=== PATIENT | female | born 1975 | race Caucasian/White ===

== ENCOUNTER 2018-05-24 10:43 | Inpatient (IN) | payer OTHER ==
[2018-05-24] MEDS ORDERED: ONDANSETRON DISINTEGRATING 4 MG TAB PO ONE (11:11)
--- NOTE | 2018-05-24 11:17 | EDPHY ---
H & P Stated Complaint: slipped /24 hit bk of head, lac, h/a, nausea Source: Patient Exam Limitations: No limitations - Personal History LMP (Females 10-55): 22-28 Days Ago Current Tetanus/Diphtheria Vaccine: Unsure Current Tetanus Diphtheria and Acellular Pertussis (TDAP): Unsure - Medical/Surgical History Hx Asthma: No Hx Chronic Respiratory Disease: No Hx Diabetes: No Hx Cardiac Disease: No Hx Renal Disease: No Hx Cirrhosis: No Hx Alcoholism: No Hx HIV/AIDS: No Hx Splenectomy or Spleen Trauma: No Other PMH: htn - Social History Smoking Status: Never smoked Time Seen by Provider: 05/24/18 11:11 HPI/ROS: HPI: This is a 42-year-old female who presents with Chief Complaint: slipped 24 hit bk of head, lac, h/a, nausea Location: Back of head Quality: Injury Duration: 4 days ago Signs and Symptoms: no fever, + nausea, + vomiting, no photophobia, no noise sensitivity, no neck stiffness, no ear pain, no tinnitus, no nasal congestion, no sinus pressure, no weakness, no radiation, no aura Timing: Acute Severity: Moderate Context: Patient reports on [place] she was walking out to the mailbox and slipped on rocks falling backwards hitting the back of her head on the rocks. She reports that she went inside woke up in the middle night with pounding headache. She believes that she had loss of consciousness but it is unknown of how long. She also complains of nausea and several episodes of vomiting. She went back to and found her phone next to the rocks with blood. No prior history of concussions. LMP 2-3 weeks ago. Her friend placed Hydrogel dressing in the laceration. Patient reports that since that time she has had a headache that is nonradiating in nature, constant, throbbing and daily. Reports she wakes up with of headache. Does not take any blood thinners. She also has nausea and vomiting each day. Tetanus is current. Patient reports that she does not remember the events surrounding the injury and has been trying to"pieces together over the last few days." Modifying Factors: Local wound care Comment: ROS: A comprehensive 10 system review of systems is otherwise negative aside from elements mentioned in the history of present illness. MEDICAL/SURGICAL/SOCIAL HISTORY: Medical history: Hypertension. Surgical history: Denies Social history: Never smoked. Denies drug and alcohol use. Family history noncontributory. CONSTITUTIONAL: Slightly anxious middle-aged white female, friend at bedside, awake and alert, no obvious distress HEENT: Scabbed over laceration at the occipital lobe and normocephalic. NECK: supple, mild midline tenderness, flexion 45 degrees, extension 45 degrees , right and left lateral flexion 45 degrees. No meningismus. Cardiovascular: Normal S1/S2, regular rate, regular rhythm, without murmur rub or gallop. PULMONARY/CHEST: Symmetrical and nontender. no crepitus. Clear to auscultation bilaterally. Good air movement. No accessory muscle usage. ABDOMEN: Soft, nondistended, nontender, no ecchymosis. EXTREMITIES: 2/2 pulses, strength 5/5, DIP/PIP/MCP flexion/extension intact with good light touch sensation. no deformities, no clubbing, no cyanosis or edema. NEUROLOGICAL: no focal neuro deficits. GCS 15. Light touch sensation intact. Word-finding difficulties. Speech normal. SKIN: Warm and dry, no erythema. no rash. Good capillary refill. (Iza Snow) Constitutional: Initial Vital Signs Temperature (C) 36.7 C 05/24/18 10:48 Heart Rate 81 05/24/18 10:48 Respiratory Rate 16 05/24/18 10:48 Blood Pressure 146/105 H 05/24/18 10:48 O2 Sat (%) 97 05/24/18 10:48 O2 Delivery Mode Room Air Allergies/Adverse Reactions: No Known Allergies Allergy (Unverified 05/24/18 10:47) Home Medications: Medication Instructions Recorded Herbals/Supplements -Info Only 1 ea PO DAILY 05/24/18 Metoprolol Succinate Xr [Toprol Xl 25 mg PO DAILY 05/24/18 25 mg (*)] Medical Decision Making ED Course/Re-evaluation: Tetanus booster ordered Due to continue nausea and vomiting 4 days after head injury, head CT scan ordered Due to midline cervical tenderness, cervical CT scan ordered Patient given p.o. Zofran and Percocet Patient given referral to the concussion Clinic and prescription for Zofran 1150: Called by Radiology, Dr. Richey, CT cervical scan shows disc bulges but no acute fracture. Head CT scan shows subarachnoid blood that surrounds the basilar artery and unable to rule aneurysm. Dr. Richey recommends CT angio head to further evaluate. I-STAT ordered. 1229: Creatinine 0.8. H&H stable. 1245: Called by Radiology who advised that CTA head shows posttraumatic subarachnoid hemorrhage on the right with no cerebral edema, no aneurysm. ED decision to consult Neurosurgery. Spoke with Dr. Lyons who advised patient does not need to be admitted or have repeat head CT imaging as she is 4 days post trauma 1255: Called by Dr. Richey who advised that there is a 3 mm aneurysm at the distal ICA on the right near the pituitary sella. Consult Neurosurgery Dr. Lyons again regarding update that there is a brain aneurysm. She reports admit to the step-down unit and she will further evaluate. 1300: Patient continues to complain of a pounding headache and given IV morphine 4 mg No signs of neurovascular compromise/tenting of skin/compartment syndrome/ extremities and joints examined above and below area of concern and are neurovascularly intact. This patient was seen under the supervision of my secondary supervising physician. I evaluated care for this patient with my attending. Discussed this patient with Dr. Casas who did see the patient. (Iza Snow) I have evaluated and participated in the management of this patient. My co- signature indicates that I have reviewed this chart and that I agree with the findings and the plan of care as documented. My personal history and physical findings include: This is a 42-year-old female who suffered a fall 4 days ago. She struck the back of her head. She has little memory of this event and has had persistent headache, nausea and vomiting, and some mild word-finding difficulty since this occurred. She has a history of hypertension. Physical exam: She is awake and alert at the time of my examination. Her initial blood pressure was 146/105. Other vital signs normal. She has a scabbed area on the occiput. There is some mild midline lower cervical tenderness. Heart is regular lungs are clear. Abdomen is soft and nontender. MIRELLA. Tongue midline. Facial expressions symmetric. She is moving all 4 extremities spontaneously and equally. Sensation is intact to light touch over arms and legs. Initial CT scan shows subarachnoid hemorrhage. CT angiogram reveals aneurysm, right ICA. It is unclear whether her subarachnoid hemorrhages secondary to aneurysmal bleed or trauma. She is being admitted to the neurosurgical service, step-down unit. She will undergo blood pressure control, frequent neurologic checks, and an angiogram. There was no change in her exam or condition during her stay in the ED. (Lindsey Casas) Differential Diagnosis: Head injury including but not limited to concussion, skull fracture, intraparenchymal contusion, subarachnoid, subdural and epidural hematoma. (Iza Snow) Critical Care Time: I spent a total of 36 minutes of critical care time in obtaining history, performing a physical exam, bedside monitoring of interventions, collecting and interpreting tests and discussion with consultants but not including time spent performing procedures. (Iza Snow) - Data Points Medications Given: Acetaminophen (Tylenol) 1,000 mg PO Q8 DUSTIN Stop: 11/20/18 21:59 Last Admin: 05/25/18 02:55 Dose: 1,000 mg Morphine Sulfate (Morphine) 2 - 4 mg IVP Q2H PRN PRN Reason: Pain, Severe Unable to Take PO Stop: 06/03/18 19:18 Last Admin: 05/25/18 02:32 Dose: 4 mg Nimodipine (Nimotop) 60 mg PO Q4HRS DUSTIN Stop: 11/20/18 17:59 Last Admin: 05/25/18 06:58 Dose: 60 mg Ondansetron HCl (Zofran Odt) 4 mg PO Q4HRS PRN PRN Reason: Nausea/Vomiting, Use 1st Stop: 11/20/18 15:21 Last Admin: 05/24/18 17:37 Dose: 4 mg Oxycodone HCl (Oxycodone Ir) 10 mg PO Q4 PRN PRN Reason: Pain, Severe Able to Take PO Stop: 06/03/18 17:37 Last Admin: 05/25/18 02:56 Dose: 10 mg Promethazine HCl (Phenergan) 12.5 mg IVP Q6H PRN PRN Reason: Nausea/Vomiting, Can't Take PO Stop: 11/20/18 19:18 Last Admin: 05/25/18 02:45 Dose: 12.5 mg Scopolamine HBr (Scopolamine Patch) 1 patch TD Q72H PRN PRN Reason: Nausea/Vomiting, Use 2nd Stop: 11/20/18 15:29 Last Admin: 05/24/18 17:53 Dose: 1 patch Senna/Docusate Sodium (Senokot-S) 1 tab PO BID DSUTIN Stop: 11/20/18 20:59 Last Admin: 05/24/18 19:28 Dose: Not Given Discontinued Medications Hydrocodone Bitart/Acetaminophen ([place] 5/325) 1 tab PO Q4H PRN PRN Reason: MODERATE TO SEVERE PAIN Stop: 06/03/18 16:20 Last Admin: 05/24/18 16:30 Dose: 1 tab Diphtheria/Tetanus/Acell Pertussis (Boostrix) 0.5 ml IM .ONCE ONE Stop: 05/24/18 11:19 Last Admin: 05/24/18 11:59 Dose: 0.5 ml Morphine Sulfate (Morphine) 4 mg IVP EDNOW ONE Stop: 05/24/18 13:05 Last Admin: 05/24/18 13:14 Dose: 4 mg Morphine Sulfate (Morphine) 2 mg IVP ONCE ONE Stop: 05/24/18 17:46 Last Admin: 05/24/18 17:53 Dose: 2 mg Ondansetron HCl (Zofran Odt) 4 mg PO EDNOW ONE Stop: 05/24/18 11:12 Last Admin: 05/24/18 11:14 Dose: 4 mg Oxycodone/Acetaminophen (Percocet 5/325) 1 tab PO EDNOW ONE Stop: 05/24/18 11:35 Last Admin: 05/24/18 11:59 Dose: 1 tab Point of Care Test Results: Chemistry 05/24/18 12:14 POC Sodium 143 mEq/L mEq/L (135-145) POC Potassium 3.7 mEq/L mEq/L (3.3-5.0) POC Chloride 109 mEq/L mEq/L (97-110) POC BUN 6 mg/dL L mg/dL (7-23) POC Creatinine 0.8 mg/dL mg/dL (0.6-1.0) POC Glucose 90 mg/dL mg/dL (70-100) ISTAT H&H 05/24/18 12:14 POC Hgb 13.3 gm/dL gm/dL (12.6-16.3) POC Hct 39 % % (38-47) Departure - Departure Disposition: [facility] Acute Clinical Impression: Subarachnoid hemorrhage following injury with brief loss of consciousness but without open intracranial wound, Brain aneurysm, Cervical disc disease Closed head injury with concussion Qualifiers: Encounter type: initial encounter Loss of consciousness presence/duration: with LOC of 30 min or less Qualified Code(s): S06.0X1A - Concussion with loss of consciousness of 30 minutes or less, initial encounter Condition: Fair
[2018-05-24] MEDS ORDERED: TDAP ADULT 0.5 ML INJ (BOOSTRIX) IM ONE (11:18)
[2018-05-24] MEDS ORDERED: OXYCODONE/APAP 5/325 TAB PO ONE (11:34)
[2018-05-24] MEDS ORDERED: IOPAMIDOL (ISOVUE 370) 100 ML BTL IV ONE (12:22)
--- NOTE | 2018-05-24 15:18 | GHP ---
DATE OF ADMISSION: 05/24/2018 CHIEF COMPLAINT: Headache. HISTORY OF PRESENT ILLNESS: This is a 42-year-old female with a past medical history of hypertension and who is relatively noncompliant with her medications. She states that on she remem bers going out to get packages and that is the last thing she remembers for a couple of hours, where she awoke in her home with blood coming from a laceration on the back of her head, and vomiting. She said that she had head and neck pain for and then this got significantly better, some mild head and neck pain, and then today she had several episodes of sort of seq-os-bph-blue severe he ad pain and in a nondescript fashion throughout her head and her neck, and some nausea and vomiting, and so she came to the emergency department. She has some mild confusion but she attributes this to having recently gotten morphine. She says that she has felt slower than normal and had maybe some mi ld word-finding difficulties but no other significant complaints beyond headache and nausea. No numb ness, tingling or weakness. PAST MEDICAL HISTORY: Includes hypertension. PAST SURGICAL HISTORY: Includes section. SOCIAL HISTORY: She does not smoke. She does not drink alcohol. She is . She does not use illicit drugs. FAMILY HISTORY: She has no family history of aneurysm or aneurysmal subarachnoid hemorrhage or sudde n . MEDICATIONS: Home medications include metoprolol, which she does not take regularly, and some type o f an herbal supplement. ALLERGIES: She has no known drug allergies. REVIEW OF SYSTEMS: Complete 10-point review of systems was performed by me and was negative except a s stated above. PHYSICAL EXAM: VITAL SIGNS: Blood pressure is 126/102, heart rate 82, respiratory rate 16, saturati ng 98% on room air. Temp is 36.7 degrees Celsius. Hemoglobin 13.3, hematocrit 39. Sodium 143, potassium 3.7, chloride 109, BUN 6, creatinine 0.8, gluc ose 90. CT of the head and cervical spine reveals a subarachnoid hemorrhage on the right within the sylvian fissure and along the right side of the brainstem and into the interpeduncular cistern. Fariha ins of basilar artery are partially obscured secondary to blood products. Possibility of aneurysm co uld not be excluded, and CT angiogram was performed and will be dictated in a moment. Loss of sulci over the right temporal lobe and posterior frontal to anterior parietal lobes could be related to blo od products in the sulci versus right-sided edema. Qouo-jn-ajnrndjd disk bulges, C4-5 and C5-6, ty g with congenitally narrow canal contributes to skvo-dt-skcuuisv spinal stenosis. No fracture or mal alignment. CT angiogram of the head reveals a tiny aneurysm associated with distal right ICA, approx imately 4 mm anterior to the posterior communicating origin, that measures 2 x 2.5 x 3 mm. No additi onal aneurysm seen on the right. There is a tiny 1 mm focal bulging of the distal left ICA involving the early part of the carotid siphon just above the carotid canal, no additional aneurysm seen on th e left. There is normal branching of the anterior middle cerebral arteries. The anterior communicat ing arteries are normal in appearance. No cut-off of flow. Normal posterior communicating artery se en on the right with some meniscal posterior communicating artery on the left. The vertebrobasilar s ystem demonstrates normal contrast enhancement without evidence of stenosis or aneurysm. There is do minant left vert when compared to the right. There is normal branching to the posterior inferior cer ebellar artery as well as the superior cerebellar artery and posterior cerebellar artery branches. N o evidence of subdural collection, vascular malformation or evidence of cerebral infarction. She is alert and oriented x3. Pupils are equal, round, reactive to light and accommodation. Externa l ocular muscles are intact. There is no facial asymmetry or tongue deviation. Sensation is intact in V1, V2, V3 distributions of the 5th cranial nerve bilaterally. Strength is 5/5 to bilateral delto ids, biceps, triceps, wrist flexors, extensors, hand intrinsics, iliopsoas, quadriceps, hamstrings, d orsiflexors, plantar flexors, EHLs. DTRs are +2/4 biceps, brachioradialis, patellar and Achilles. T here is no Iggy's. There is no clonus and there is no drift. IMPRESSION AND PLAN: This is a 42-year-old female with subarachnoid hemorrhage in the prepontine cis tern and right sylvian fissure. She did have a fall on [place]. This may be traumatic in natu re as there appears to be no obvious connection to the small distal ICA aneurysm that is noted, altho ugh this is also present in the right side. Given her story is not clear for the etiology of her fal l, the fact that she is having severe headache and nausea and there is an aneurysm present, I have di scussed this case with my vascular partner, Dr. Karl Mueller, who has reviewed the films. We will ad will her to the step-down, will start nimodipine 60 mg p.o. q.4 hours, q.2 hour neuro checks, keep her blood pressure well controlled, control her pain, get an MRA to further visualize the vessels, and Gerhard Mueller will work on scheduling her for an angiogram on Sunday. This was discussed with the patient and a family member at bedside. She is agreeable, is to call with any changes in neurologic status. /[id number]/MODL
[2018-05-24] MEDS ORDERED: ACETAMINOPHEN 650 MG/20.3 ML UDCUP PO PRN (15:22)
[2018-05-24] MEDS ORDERED: oxyCODONE IR 5 MG TAB PO PRN (15:22)
[2018-05-24] MEDS ORDERED: ONDANSETRON DISINTEGRATING 4 MG TAB PO PRN (15:22)
[2018-05-24] MEDS ORDERED: SCOPOLAMINE HYDROBROMIDE 1 MG/3 DAYS PATCH TD PRN (15:22)
[2018-05-24] MEDS ORDERED: LABETALOL HCL 20 MG/4 ML INJ IVP PRN (15:22)
--- NOTE | 2018-05-24 15:56 | PDMN ---
Medical Necessity Medical necessity: Pt meets inpt criteria per MD order and MCG M-79, Subarachnoid Hemorrhage, Nonsurgical Treatment, 4 days. 42 y/o admitted w/ subarachnoid hemorrhage in the prepontine cistern and R sylvian fissure, possibly from trauma of fall several days ago, pt w/severe ERICKSON and nausea and aneurysm present. SDU care, q 2 hr neuro checks, BP control, pain control, MRA pending, angiogram likely Sunday, SDU care/monitoring.
[2018-05-24] MEDS ORDERED: METOPROLOL TARTRATE 5 MG/5 ML INJ ONE (15:57)
[2018-05-24] MEDS ORDERED: HYDROCODONE/APAP 5/325 TAB PO PRN (16:21)
[2018-05-24] MEDS: niMODipine 30 MG CAP PO SCH ×2 (18:05→22:23)
[2018-05-24] MEDS: oxyCODONE IR 5 MG TAB PO PRN (18:27)
[2018-05-24] MEDS: PROMETHAZINE HCL 25 MG/ML INJ IVP PRN (19:22)
[2018-05-24] MEDS: SENNOSIDES/DOCUSATE SODIUM TAB PO SCH (19:28)
[2018-05-24] MEDS: ACETAMINOPHEN 500 MG TAB PO SCH (23:07)
[2018-05-25] MEDS: niMODipine 30 MG CAP PO SCH ×6 (02:31→22:51)
[2018-05-25] MEDS: PROMETHAZINE HCL 25 MG/ML INJ IVP PRN (02:45)
[2018-05-25] MEDS: ACETAMINOPHEN 500 MG TAB PO SCH ×3 (02:55→22:53)
[2018-05-25] MEDS: oxyCODONE IR 5 MG TAB PO PRN ×5 (02:56→22:52)
--- NOTE | 2018-05-25 07:02 | NEUSURGPN ---
Assessment/Plan: 42F, HTN, with fall 4 days ago and some suspected tSAH int he prepontine cistern and right sylvian fissure, also with imaging findings of aneurysm along the distal ICA on the right. -SBP<150 -q2h neuro checks -nimotop 60mg q4h -pain control -minimize narcotics -nausea control -plan for angiogram and treatment on Sunday at noon with Dr. Mueller dw Dr. Mueller Subjective: continues to have headache, no new issues with nausea, rates pain 10/04 Objective: VSS AAOx3 NAD cnii-xii grossly intact EOMI, PEARLA no facial droop, no pronator drift MAEx4, 09/29= SILT - Physician Discussed Patient with : Ervin Neurosurgery Physical Exam - Vitals, I&O, Labs I and O 05/24/18 05/25/18 05/26/18 05:59 05:59 05:59 Intake Total 950 Output Total 500 Balance 450 Weight 70.3 kg Intake: Oral (ml) 950 Output: Emesis (ml) 500 Other: Intake Quantity Yes Sufficient Number of Voids Toilet 2 Vital Signs Temp Pulse Resp BP Pulse Ox 36.6 C 69 15 109/72 91 L 05/24/18 14:45 05/25/18 04:00 05/25/18 04:00 05/25/18 04:00 05/25/18 04:00 ICD10 Worksheet Patient Problems: Problems Problem Status Onset Brain aneurysm Acute Cervical disc disease Acute Closed head injury with concussion Acute Subarachnoid hemorrhage following injury with brief loss of consciousness but without open intracranial wound Acute
[2018-05-25] MEDS: SENNOSIDES/DOCUSATE SODIUM TAB PO SCH ×2 (09:37→22:54)
[2018-05-25] MEDS: METOPROLOL SUCCINATE XR 25 MG TAB PO SCH (09:37)
[2018-05-25] MEDS: ONDANSETRON 4 MG/2 ML VIAL IVP PRN ×2 (09:47→17:00)
[2018-05-26] MEDS: niMODipine 30 MG CAP PO SCH ×6 (01:52→21:15)
[2018-05-26] MEDS: oxyCODONE IR 5 MG TAB PO PRN ×5 (04:54→21:15)
[2018-05-26] MEDS: ACETAMINOPHEN 500 MG TAB PO SCH ×3 (04:55→21:15)
[2018-05-26] MEDS: METOPROLOL SUCCINATE XR 25 MG TAB PO SCH (08:46)
[2018-05-26] MEDS: SENNOSIDES/DOCUSATE SODIUM TAB PO SCH ×2 (09:00→21:15)
--- NOTE | 2018-05-26 09:46 | ASMTCMCOM ---
CM Note CM Note Notes: 42yo female admitted after a Fall: Headache, Nausea, CHI, SAH, Aneurysm. She has a Hx of HTN not well managed. Patient to have an angiogram on Sunday. Patient lives alone in [place]. Therapies to MARY wick to follow. Date Signed: 05/26/2018 09:45 AM Electronically Signed By:Alisson Alexandre LCSW
--- NOTE | 2018-05-26 10:30 | NEUSURGPN ---
Assessment/Plan: 42F, HTN, with fall 4 days ago and some suspected tSAH int he prepontine cistern and right sylvian fissure, also with imaging findings of aneurysm along the distal ICA on the right. -encourage mobilization. -SBP<150 -q2h neuro checks -nimotop 60mg q4h -pain control -minimize narcotics -nausea control -plan for angiogram and treatment on Sunday at noon with Dr. Mueller dw Dr. Mueller Subjective: doing well, still with some headaches, controlled with meds. Objective: VSS AAOx3 NAD cnii-xii grossly intact EOMI, PEARLA speech clear and fluent no facial droop, no pronator drift MAEx4, 5/= SILT - Physician Discussed Patient with Dr.: Mueller Neurosurgery Physical Exam - Vitals, I&O, Labs I and O 05/25/18 05/26/18 05/27/18 05:59 05:59 05:59 Intake Total 950 800 Output Total 500 Balance 450 800 Weight 70.3 kg Intake: Oral (ml) 950 800 Output: Emesis (ml) 500 Other: Intake Quantity Yes Sufficient Number of Voids Toilet 2 1 Vital Signs Temp Pulse Resp BP Pulse Ox 36.5 C 83 16 127/86 H 97 05/26/18 08:32 05/26/18 10:08 05/26/18 08:32 05/26/18 10:08 05/26/18 08:32 ICD10 Worksheet Patient Problems: Problems Problem Status Onset Brain aneurysm Acute Cervical disc disease Acute Closed head injury with concussion Acute Subarachnoid hemorrhage following injury with brief loss of consciousness but without open intracranial wound Acute
[2018-05-26] MEDS: PROMETHAZINE HCL 25 MG/ML INJ IVP PRN (21:15)
[2018-05-27] MEDS: oxyCODONE IR 5 MG TAB PO PRN ×5 (02:11→21:15)
[2018-05-27] MEDS: niMODipine 30 MG CAP PO SCH ×5 (02:11→19:33)
[2018-05-27] MEDS: ACETAMINOPHEN 500 MG TAB PO SCH ×3 (05:43→21:15)
--- NOTE | 2018-05-27 07:38 | NEUSURGPN ---
Assessment/Plan: Assessment: 42 yo female with HTN and fall prior to admission with some suspected tSAH in the prepontine cistern and right sylvian fissure, also with imaging findings of aneurysm along the distal ICA on the right Plan: -encourage mobilization -NPO -SBP<150 -q2h neuro checks -nimotop 60mg q4h -pain control -minimize narcotics -nausea control -plan for angiogram and treatment today with Dr. Mueller -consents reviewed in detail with patient and signed -risks, need and benefits of surgery discussed -pt understands and agrees, she wants to proceed Subjective: Awake and alert. NAD. No new events overnight Objective: AFVSS. AAOx3 NAD cnii-xii grossly intact EOMI, PEARLA speech clear and fluent no facial droop, no pronator drift CHIU x 4, 5/5= SILT Neuro Check Frequency: per routine Urinary Catheter in Place: No - Physician Discussed Patient with Dr.: Mueller Patient Seen by : Ervin Neurosurgery Physical Exam - Vitals, I&O, Labs I and O 05/26/18 05/27/18 05/28/18 05:59 05:59 05:59 Intake Total 800 2500 Balance 800 2500 Intake: Oral (ml) 800 2500 Other: Number of Voids Toilet 1 1 Vital Signs Temp Pulse Resp BP Pulse Ox 36.9 C 65 20 93/57 L 94 05/27/18 04:00 05/27/18 04:00 05/27/18 04:00 05/27/18 04:00 05/27/18 04:00 ICD10 Worksheet Patient Problems: Problems Problem Status Onset Brain aneurysm Acute Cervical disc disease Acute Closed head injury with concussion Acute Subarachnoid hemorrhage following injury with brief loss of consciousness but without open intracranial wound Acute
[2018-05-27] MEDS ORDERED: ceFAZolin 2 GM in D5W 100 ML IV ONE (10:00)
[2018-05-27] MEDS: SENNOSIDES/DOCUSATE SODIUM TAB PO SCH ×2 (10:22→21:14)
[2018-05-27] MEDS: METOPROLOL SUCCINATE XR 25 MG TAB PO SCH (10:23)
[2018-05-27] MEDS ORDERED: MIDAZOLAM 2 MG/2 ML VIAL IVP ONE (11:33)
--- NOTE | 2018-05-27 11:37 | PDANEPAE ---
ANE History of Present Illness Intracranial angiogram possible coiling ANE Past Medical History - Cardiovascular History Hx Hypertension: Yes Hx Arrhythmias: No Hx Chest Pain: No Hx Coronary Artery / Peripheral Vascular Disease: No Hx CHF / Valvular Disease: No Hx Palpitations: No - Pulmonary History Hx COPD: No Hx Asthma/Reactive Airway Disease: No Hx Recent Upper Respiratory Infection: No Hx Oxygen in Use at Home: No Hx Sleep Apnea: No - Endocrine History Hx Diabetes: No Hypothyroid: No Hyperthyroid: No Obesity: no - Chronic Pain History Chronic Pain: No ANE Review of Systems Review of systems is: negative Review of Systems: - Exercise capacity METS (RN): 4 METS ANE Patient History - Allergies Allergies/Adverse Reactions: No Known Allergies Allergy (Unverified 05/24/18 10:47) - Home Medications Home medications: home medication list seen and reviewed Home Medications: Herbals/Supplements -Info Only 1 ea PO DAILY 05/24/18 [Last Taken 3 Days Ago ~] Metoprolol Succinate Xr [Toprol Xl 25 mg (*)] 25 mg PO DAILY 05/24/18 [Last Taken 7 Days Ago ~05/17/18] - NPO status NPO Status: no food or drink >8 hours - Anes Hx Anes Hx: no prior problems - Smoking Hx Smoking Status: Never smoked - Alcohol Use Alcohol Use: None - Family Anes Hx Family Anes Hx: none ANE Labs/Vital Signs - Labs Result Diagrams: 05/27/18 08:23 - Vital Signs Blood Pressure: 99/62 Heart Rate: 68 Respiratory Rate: 14 O2 Sat (%): 93 Height: 170.18 cm Weight: 70.3 kg ANE Physical Exam - Airway Neck exam: FROM Mallampati Score: Class 1 - Pulmonary Pulmonary: no respiratory distress, no rales or rhonchi - Cardiovascular Cardiovascular: regular rate and rhythym, no murmur, rub, or gallop - ASA Status ASA Status: II ANE Anesthesia Plan Anesthesia Plan: general endotracheal anesthesia Lines/Monitors: arterial line (Possible a-line)
[2018-05-27] MEDS ORDERED: IOPAMIDOL (ISOVUE-300) 100 ML BTL ONE ×2 (11:47→15:42)
[2018-05-27] MEDS ORDERED: PROPOFOL/EMULSION 500 MG/50 ML BOTTLE IV ONE (11:53)
[2018-05-27] MEDS ORDERED: MEPERIDINE 25 MG/ML SYR IVP PRN (11:53)
[2018-05-27] MEDS ORDERED: NALOXONE HCL 0.4 MG/ML INJ IVP PRN ×2 (11:53→16:19)
[2018-05-27] MEDS ORDERED: FLUMAZENIL 0.5 MG/5 ML MDV IVP PRN (11:53)
[2018-05-27] MEDS ORDERED: MIDAZOLAM 2 MG/2 ML VIAL IVP PRN (11:53)
[2018-05-27] MEDS ORDERED: PROPOFOL 200 MG/20 ML VIAL ONE ×2 (11:53→14:12)
[2018-05-27] MEDS ORDERED: ALTEPLASE 2 MG VIAL IVP PRN (11:53)
[2018-05-27] MEDS ORDERED: HEPARIN 10,000 UNIT/10 ML MDV (1,000 UNIT/ML) IVP PRN (11:53)
[2018-05-27] MEDS ORDERED: ROCURONIUM 50 MG/5 ML VIAL ONE ×2 (11:53→13:17)
[2018-05-27] MEDS ORDERED: PROTAMINE SULFATE 50 MG/5 ML VIAL IVP PRN (11:53)
[2018-05-27] MEDS ORDERED: fentaNYL 100 MCG/2 ML INJ IVP PRN ×2 (11:53→16:19)
[2018-05-27] MEDS ORDERED: fentaNYL 100 MCG/2 ML INJ ONE ×2 (11:53)
[2018-05-27] MEDS ORDERED: GLYCOPYRROLATE 0.2 MG/1 ML VIAL ONE (11:54)
[2018-05-27] MEDS ORDERED: DEXAMETHASONE 4 MG/ML VIAL ONE (11:54)
[2018-05-27] MEDS ORDERED: PHENYLEPHRINE HCL 100 MCG/ML SYR ONE (11:54)
[2018-05-27] MEDS ORDERED: LIDOCAINE 2% 5 ML SDV ONE (11:54)
[2018-05-27] MEDS ORDERED: NS 1,000 ML IV SCH (12:00)
[2018-05-27] MEDS ORDERED: ONDANSETRON 4 MG/2 ML VIAL ONE (13:24)
[2018-05-27] MEDS ORDERED: LIDOCAINE HCL 160 MG/4 ML LTA KIT TP ONE (13:24)
[2018-05-27] MEDS ORDERED: VERAPAMIL 5 MG/2 ML VIAL ONE (14:05)
[2018-05-27] MEDS ORDERED: VERAPAMIL IVP PRN (14:20)
[2018-05-27] MEDS ORDERED: SUGAMMADEX SODIUM 200 MG/2 ML VIAL IVP ONE (14:30)
--- NOTE | 2018-05-27 14:56 | POSTOPPROG ---
Post Op Note Date of Operation: 05/27/18 Surgeon: Karl Mueller [employer] Salesperson: none Anesthesiologist: Anastacio Anesthesia: GET(General Endotracheal) Pre-op Diagnosis: cerebral aneurysm Post-op Diagnosis: same Indication: same Procedure: coil embolization of cerebral aneurysm Findings: see dictation Inf/Abcess present in the surg proc area at time of surgery?: No EBL: Minimal
--- NOTE | 2018-05-27 14:57 | PDCONSULT ---
Office Nurse Practitioner Note: NEUROSURGERY resting well in PACU AAOx3, speech clear and fluent VF full, CNII-XII normal full strength and sensation, no drift groin c/d/i without hematoma POD#0 s/p coil embolization of right superior hypophyseal aneurysm - doing well - monitor in SDU overnight - likely could d/c tomorrow if doing well - continue SBP 90-140 - can d/c nimodipine at d/c Ervin
[2018-05-27] MEDS ORDERED: PATCH REMOVAL 1 EA PATCH TD SCH (15:26)
[2018-05-27] MEDS ORDERED: ONDANSETRON 4 MG/2 ML VIAL IVP PRN (16:19)
[2018-05-27] MEDS ORDERED: ACETAMINOPHEN 500 MG TAB PO PRN (16:19)
--- NOTE | 2018-05-27 16:54 | POSTANESTH ---
Post Anesthetic Evaluation Cardiovascular Status: Normal, Stable Respiratory Status: Normal, Stable Level of Consciousness/Mental Status: Can Participate in Eval Pain Control: Adequate, Prn Tx Ordered Nausea/Vomiting Control: Adequate, Prn Tx Ordered Complications Possibly Related to Anesthesia: None Noted
[2018-05-27] MEDS: PROMETHAZINE HCL 25 MG/ML INJ IVP PRN (21:16)
[2018-05-28] MEDS: niMODipine 30 MG CAP PO SCH ×4 (00:05→10:45)
[2018-05-28] MEDS: oxyCODONE IR 5 MG TAB PO PRN ×3 (03:34→12:43)
[2018-05-28] MEDS: ACETAMINOPHEN 500 MG TAB PO SCH (06:38)
[2018-05-28] MEDS: METOPROLOL SUCCINATE XR 25 MG TAB PO SCH (08:47)
[2018-05-28] MEDS: SENNOSIDES/DOCUSATE SODIUM TAB PO SCH (08:47)
--- NOTE | 2018-05-28 09:18 | NEUSURGPN ---
Assessment/Plan: 42F, HTN, with fall 4 days ago and some suspected tSAH int he prepontine cistern and right sylvian fissure, also with imaging findings of aneurysm along the distal ICA on the right. 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 Mueller Subjective: doing well. headache managed on oxy/tylenol, thinks its improve. feeling of pressure around her eyes is improving. Objective: NAD VSS AAOx3 EOMI, PEARLA Cnii-xii grossly intact no facial droop, no drift Speech clear and fluent MAEx4, 5/5= SILT Incision dressed, Dry intact. - Physician Discussed Patient with : [facility] Physical Exam - Vitals, I&O, Labs I and O 05/27/18 05/28/18 05/29/18 05:59 05:59 05:59 Intake Total 2500 1700 Output Total 20 Balance 2500 1680 Weight 70.3 kg Intake: Oral (ml) 2500 800 IV Intake (ml) 900 Output: Estimated Blood Loss (ml) 20 Other: Number of Voids Toilet 1 3 Vital Signs Temp Pulse Resp BP Pulse Ox 36.9 C 67 14 98/67 L 92 05/28/18 07:35 05/28/18 08:47 05/28/18 07:35 05/28/18 08:47 05/28/18 07:35 Laboratory Results 05/27/18 08:23 ICD10 Worksheet Patient Problems: Problems Problem Status Onset Brain aneurysm Acute Cervical disc disease Acute Closed head injury with concussion Acute Subarachnoid hemorrhage following injury with brief loss of consciousness but without open intracranial wound Acute
[2018-05-28 11:43] VITALS: BP 107/72
--- NOTE | 2018-05-28 13:10 | ASMTLACE ---
LACE Length of stay for Answers: 3 days current admission Acuity / Level of Answers: Yes Care: Did the patient have an inpatient admission? Comorbidities - select Answers: Other Notes: HTN all that apply # of Emergency department Answers: 1-2 visits in the last 6 months Score: 8 Date Signed: 05/28/2018 01:09 PM Electronically Signed By:Jacy Tate RN
--- NOTE | 2018-05-28 13:13 | ASDISCHSUM ---
Discharge Information Plan Status:Home with No Needs Medically Cleared to Leave: Discharge Date:05/28/2018 01:04 PM CM D/C Disposition: ADT D/C Disposition:Home, Routine, Self-Care Projected Discharge Date:05/28/2018 01:04 PM Transportation at D/C: Discharge Delay Reason: Follow-Up Date:05/28/2018 01:04 PM Discharge Slot: Final Diagnosis:Fall: Headache, Nausea, CHI, SAH, Aneurysm Placement Information Patient Contact Information Contact Name:CHIKI Relationship:Mother Address: City: [facility] Phone: [facility]/Zip Code:[place] Email: Financial Information Financial Class:Self-Pay Primary Plan Desc:SELF PAY Primary Plan Number: Secondary Plan Desc: Secondary Plan Number: Assessment Information [facility] CM Progress Note CM Note CM Note Notes: 42yo female admitted after a Fall: Headache, Nausea, CHI, SAH, Aneurysm. She has a Hx of HTN not well managed. Patient to have an angiogram on Sunday. Patient lives alone in [place]. Therapies to MARY wick to follow. Date Signed: 05/26/2018 09:45 AM Electronically Signed By:Alisson Alexandre LCSW LACE PARTHA Length of stay for Answers: 3 days current admission Acuity / Level of Answers: Yes Care: Did the patient have an inpatient admission? Comorbidities - select Answers: Other Notes: HTN all that apply # of Emergency department Answers: 1-2 visits in the last 6 months Score: 8 Date Signed: 05/28/2018 01:09 PM Electronically Signed By:Jacy Tate RN Case Management Discharge Plan Note Case Management Discharge Discharge Order Complete? Answers: Yes Patient to Obtain Answers: Independently Medications Transportation Arranged Answers: Family/Friends Discharge Comments Notes: Patient discharged home. No d/c needs identified. Date Signed: 05/28/2018 01:11 PM Electronically Signed By:Jacy Tate RN Intervention Information
== END 2018-05-28 13:04 | disposition home or self-care (01) | DRG 25 ==
LOC: F2N 14:36
PROVIDERS: ADMIT Neurological Surgery; ATTEND Neurological Surgery
PROC: B31F1ZZ Fluoroscopy of Left Vertebral Artery using Low Osmolar Contrast (ICD-10-PCS; principal; 2018-05-27 14:55)
PROC: 03LK3DZ Occlusion of Right Internal Carotid Artery with Intraluminal Device, Percutaneous Approach (ICD-10-PCS; principal; 2018-05-27 14:55)
PROC: B3181ZZ Fluoroscopy of Bilateral Internal Carotid Arteries using Low Osmolar Contrast (ICD-10-PCS; principal; 2018-05-27 14:55)
DX: I67.1 Cerebral aneurysm, nonruptured (principal); S06.6X1A Traumatic subarachnoid hemorrhage with loss of consciousness of 30 minutes or less, initial encounter; W01.198A Fall on same level from slipping, tripping and stumbling with subsequent striking against other object, initial encounter; I10 Essential (primary) hypertension; M48.02 Spinal stenosis, cervical region; Y92.007 Garden or yard of unspecified non-institutional (private) residence as the place of occurrence of the external cause; Y93.89 Activity, other specified; Z23 Encounter for immunization
CPT/HCPCS: 82435-PO; 82565-PO; 82947-PO; 84132-PO; 84295-PO; 84520-PO; 85014-PO; 92523-GN; 96374; C1769; C1887; J0690; J1100; J2250; J2270; J2370; J2405; J2550; J2704; J3010; Q9967

== ENCOUNTER 2018-06-04 11:58 | Emergency (ER) | payer OTHER ==
[2018-06-04] MEDS ORDERED: IPRATROPIUM/ALBUTEROL 3 ML DEYVIAL IH ONE (12:24)
--- NOTE | 2018-06-04 12:24 | EDPHY ---
H & P Stated Complaint: feels like can't breathe/hyp[erventilation/brain aneurysm surg 05/27 Time Seen by Provider: 06/04/18 12:24 - Personal History LMP (Females 10-55): IUD In Place Current Tetanus Diphtheria and Acellular Pertussis (TDAP): Yes - Medical/Surgical History Hx Asthma: No Hx Chronic Respiratory Disease: No Hx Diabetes: No Hx Cardiac Disease: No Hx Renal Disease: No Hx Cirrhosis: No Hx Alcoholism: No Hx HIV/AIDS: No Hx Splenectomy or Spleen Trauma: No Other PMH: htn surg for brain aneurysm - Social History Smoking Status: Never smoked Constitutional: Initial Vital Signs Temperature (C) 36.8 C 06/04/18 12:02 Heart Rate 68 06/04/18 12:02 Respiratory Rate 20 06/04/18 12:02 Blood Pressure 127/97 H 06/04/18 12:02 O2 Sat (%) 100 06/04/18 12:02 O2 Delivery Mode Room Air Allergies/Adverse Reactions: No Known Allergies Allergy (Verified 06/04/18 12:01) Home Medications: Medication Instructions Recorded Herbals/Supplements -Info Only 1 ea PO DAILY 05/24/18 Metoprolol Succinate Xr [Toprol Xl 25 mg PO DAILY 05/24/18 25 mg (*)] Acetaminophen [Tylenol ES 500 mg 1,000 mg PO Q8 tab 05/28/18 (*)] Sennosides/Docusate Sodium 1 tab PO BID tab 05/28/18 [Senokot-S] Percocet 5-325 mg Tablet 06/04/18 Medical Decision Making - Diagnostics Imaging Results: Imaging Impressions Chest/Thorax CTA 06/04/18 12:32 Impression: 1. No evidence of thrombopulmonary embolic disease. 2. Mild airways disease. Otherwise clear lungs. No pneumonia or edema. Findings discussed with Emergency Department physician, Dr. Maurizio Zimmer on June 04, 2018 at 1340 hours. Imaging: Discussed imaging studies w/ bilingual call center representative Radiologist ED Course/Re-evaluation: CHIEF COMPLAINT: Difficulty breathing HISTORY OF PRESENT ILLNESS: 42-year-old female who had a brain aneurysm coiled on 05/27/2018. She has been doing well postoperatively but today she noticed that she was having some shortness of breath. She describes a squeezing around her upper chest and neck. She describes some difficulty in swallowing. She states that she feels like she was a bit anxious. It was her 1st day back at work. She denies any chest pain or chest pressure. She denies any true shortness of breath now as these symptoms come and go a bit and last for a minute or 2. She call the neurosurgeon's office but did not hear back at so came here for further evaluation. She does not have any cardiopulmonary risk factors. She has no family risk factors for early cardiac disease. She does take metoprolol for borderline hypertension. REVIEW OF SYSTEMS: A comprehensive 10 system review of systems is otherwise negative aside from elements mentioned in the history of present illness and medical decision making. PHYSICAL EXAM: HR, BP, O2 Sat, RR. Temp noted General Appearance: Alert, well hydrated, appropriate, and non-toxic appearing. Head: Atraumatic without scalp tenderness or obvious injury Eyes: Pupils equal, round, reactive to light and accommodation, EOMI, no trauma , no injection. Ears: Clear bilaterally, no perforation, normal landmarks Nose: Atraumatic, no rhinorrhea, clear. Throat: There is no erythema or exudates, no lesions, normal tonsils, mucus membranes moist. Neck: Supple, 2+ carotid upstroke, nontender, no lymphadenopathy. Respiratory: No retractions, no distress, no wheezes, and no accessory muscle use. Lungs are clear to auscultation bilaterally. Cardiovascular: Regular rate and rhythm, no murmurs, rubs, or gallops. Bilateral carotid, radial, dorsalis pedis, and posterior tibial pulses intact. Good capillary refill all extremities. Gastrointestinal: Abdomen is soft, nontender, non-distended, no masses, no rebound, no guarding, no peritoneal signs. Musculoskeletal: Normal active ROM of all extremities, atraumatic. Neurological: Alert, appropriate, and interactive. The patient has normal DTRs and non-focal cranial nerves, motor, sensory, and cerebellar exam. Skin: No rashes, good turgor, no nodules on palpation. Past medical history: Brain aneurysm hypertension Past surgical history: coil of brain aneurysm Family history: Noncontributory Social history: Single, employed, does not abuse tobacco drugs or alcohol DIAGNOSTICS/PROCEDURES/CRITICAL CARE TIME: Study: CT angiography of the chest Indication: Postoperative with shortness of breath intermittently Results: CT scan of the chest was obtained. The results of the study are normal. The study was read by the radiologist, Dr. Hurst. I viewed the images myself on the PACS system. DIFFERENTIAL DIAGNOSIS: The differential diagnosis for the patient's shortness of breath included but was not limited to pneumonia, myocardial infarction, acute mountain sickness, high altitude pulmonary edema, congestive heart failure , and pulmonary embolus. MEDICAL DECISION MAKING: This patient is recently postop from brain surgery. She is not currently on any anticoagulants. She is not immobile. She was started her 1st at work when she felt a bit anxious and having intermittently trouble breathing. She feels better now. She is specifically concerned about a blood clot. She is not tachypneic or tachycardic. I-STAT, troponin, CT angiography pending. She has 100% O2 saturation on room air. I will not complete d-dimer test at this time as this may be elevated due to her recent surgery. As she is higher risk and particularly concerned regarding pulmonary embolus, we will proceed straight to CTA. The 12 lead EKG was interpreted by myself. See hard copy and/or "tracemaster" electronic copy for interpretation. Sinus rhythm, rate 60. POC troponin negative. 13:[address] Hurst radiologist. CTA negative for PE. Reassessed patient. Discussed imaging results. No evidence of blood clot. Plan to discharge home in good condition. She will follow up with her surgeon as scheduled and PCP as needed. Follow up and return precautions discussed. She is comfortable with this plan. - Data Points Laboratory Results: 06/04/18 06/04/18 12:44 12:44 POC Hgb 14.6 gm/dL gm/dL (12.6-16.3) POC Hct 43 % % (38-47) POC Sodium 139 mEq/L mEq/L (135-145) POC Potassium 3.8 mEq/L mEq/L (3.3-5.0) POC Chloride 105 mEq/L mEq/L (97-110) POC BUN 9 mg/dL mg/dL (7-23) POC Creatinine 0.9 mg/dL mg/dL (0.6-1.0) POC Glucose 99 mg/dL mg/dL (70-100) POC Troponin I 0.00 ng/mL ng/mL (0.00-0.08) Medications Given: Discontinued Medications Albuterol/Ipratropium (Duoneb) 3 ml EDNOW ONE Stop: 06/04/18 12:25 Last Admin: 06/04/18 12:55 Dose: 3 ml Point of Care Test Results: Chemistry 06/04/18 06/04/18 12:44 12:44 POC Sodium 139 mEq/L mEq/L (135-145) POC Potassium 3.8 mEq/L mEq/L (3.3-5.0) POC Chloride 105 mEq/L mEq/L (97-110) POC BUN 9 mg/dL mg/dL (7-23) POC Creatinine 0.9 mg/dL mg/dL (0.6-1.0) POC Glucose 99 mg/dL mg/dL (70-100) POC Troponin I 0.00 ng/mL ng/mL (0.00-0.08) ISTAT H&H 06/04/18 12:44 POC Hgb 14.6 gm/dL gm/dL (12.6-16.3) POC Hct 43 % % (38-47) Departure - Departure Disposition: Home, Routine, Self-Care Clinical Impression: Shortness of breath Condition: Good Instructions: Shortness of Breath (ED) Additional Instructions: Follow up with your surgeon as scheduled. Follow up with your primary care provider for further concerns. Return to the emergency department for fever, chest pain, shortness of breath, severe headache, or other worsening of condition. Referrals: Lindsay Hylton MD [Medical Doctor] - As per Instructions Report Scribed for: Maurizio Zimmer Report Scribed by: Olivia Joyce Date of Report: 06/04/18 Time of Report: 14:01
[2018-06-04] MEDS ORDERED: IOPAMIDOL (ISOVUE 370) 100 ML BTL IV ONE (12:58)
[2018-06-04 13:07] VITALS: BP 127/80
--- NOTE | 2018-06-04 14:21 | CPEKG ---
Test Reason : OPEN Blood Pressure : / mmHG Vent. Rate : 060 BPM Atrial Rate : 060 BPM P-R Int : 139 ms QRS Dur : 090 ms QT Int : 456 ms P-R-T Axes : -07 035 004 degrees QTc Int : 456 ms Sinus rhythm Confirmed by Maurizio Zimmer ([id number]) on 06/04/2018 2:21:12 PM Referred By: Confirmed By:Maurizio Zimmer
--- NOTE | 2018-06-06 14:29 | CPEKG ---
Test Reason : OPEN Blood Pressure : / mmHG Vent. Rate : 060 BPM Atrial Rate : 060 BPM P-R Int : 139 ms QRS Dur : 090 ms QT Int : 456 ms P-R-T Axes : -07 035 004 degrees QTc Int : 456 ms Sinus rhythm Confirmed by Fabian Grijalva ([id number]) on 06/06/2018 2:28:47 PM Referred By: Confirmed By:Fabian Grijalva
== END 2018-06-04 14:03 | disposition home or self-care (01) ==
DX: R06.02 Shortness of breath (principal)
CPT/HCPCS: 82435-PO; 82565-PO; 82947-PO; 84132-PO; 84295-PO; 84484-ER; 84520-PO; 85014-ER; Q9967